=== PATIENT | male | born 1935 | race Caucasian/White ===

== ENCOUNTER 2020-05-11 06:47 | Observation (INO) | payer MEDICARE, BC, SELFPAY ==
[2019-05-02 09:25] VITALS: BMI 26.9
[2020-05-11 06:48] VITALS: BP 189/93; PULSE 85; RESP 18; TEMP 37.2; O2SAT 94; BMI 24.7
--- NOTE | 2020-05-11 07:10 | CT_ITS ---
We are attempting to reach an attending provider to discuss findings. An addendum with communication details will be sent when the communication is complete. STUDY: CT LUMBAR SPINE WITHOUT CONTRAST REASON FOR EXAM: Male, 84 years old. Fell out of chair today, complains of low back pain. Hx diabetes, prostate cancer ? mets. No prior back surgery. RADIATION DOSAGE (If Supplied By Facility): CTDIvol = ( 15.23 ) mGy, DLP = ( 472.86 ) mGycm TECHNIQUE: The patient was scanned in a multi detector CT scanner. High resolution transaxial imaging was performed. Images were obtained from T12 to S1. Sagittal and coronal images were reconstructed. Individualized dose optimization techniques were used for this CT. COMPARISON: None FINDINGS: Normal lumbar lordosis. Mild levoscoliosis of the thoracic lumbar spine centered at T12/L1. Normal vertebrae of the lumbar spine. There is gas within the subcutaneous fat posterior to the lumbar spine from L3 through L5 as well as gas in the epidural space beginning from L3 to L5 likely from some sort of intervention. Clinical correlation is recommended. L1-2: Normal endplates. Normal disc height and morphology. Normal bilateral facet joints. Normal central canal and bilateral lateral recesses. Normal bilateral intervertebral neural foramina. L2-3: Mild bilateral facet hypertrophy and ligament flavum hypertrophy. Mild bilobed disc protrusion produces mild spinal stenosis and mild bilateral neural foraminal stenosis. L3-4: Mild bilateral facet hypertrophy and severe ligament flavum hypertrophy. Mild bilobed disc protrusion produces mild spinal stenosis and mild bilateral neural foraminal stenosis. L4-5: Mild bilateral facet hypertrophy and ligament flavum hypertrophy. Mild broad disc protrusion produces mild spinal stenosis and mild bilateral neural foraminal stenosis. L5-S1: Severe left facet hypertrophy. Mild broad disc protrusion produces mild spinal stenosis and mild bilateral neural foraminal stenosis. Normal visualized paraspinous soft tissue structures. CT/Spine Lumbar without Contrast IMPRESSION: 1. Gas within the subcutaneous fat in the epidural space from L3 through L5 likely from recent intervention such as epidural injection. Clinical correlation is recommended. 2. No acute fracture or subluxation. 3. Mild levoscoliosis with diffuse degenerative disc disease as described above. Electronically Signed: Payam Navarrete MD at 8:18 EST Tel , Service support ,
[2020-05-11 07:47] LABS: Absolute Lymphocyte Count 0.96 X10^3/uL (0.83-4.51); Absolute Neutrophil Count 6.2 X10^3/uL (2.0-7.7); Basophil# 0.02 X10^3/uL; Basophil% 0.2 % (0-1); Eosinophil# 0.03 X10^3/uL; Eosinophils% 0.4 % (0-5); Hemoglobin 14.2 g/dL (13.0-16.5); Lymphocyte # 0.96 X10^3/ul (4.0); Lymphocyte % 11.9 % (19-41); Mean Corp Hgb Conc 32.3 g/dL (32-36); Mean Corpuscular Hgb 28.9 pg (27.0-32.0); Mean Corpuscular Volume 89.4 fL (80-94); Mean Platelet Vol. 8.6 fl (6.2-12.0); Monocyte# 0.79 X10^3/uL; Monocyte% 9.8 % (0-10); NRBC Flagged by Analyzer 0 % (0-5); Neutrophil # 6.22 X10^3/uL (2.7-7.7); Neutrophil % 77.5 % (47-70); Platelet Count 204 K/mm3 (150-450); RBC Distribution Width CV 12.7 % (11.6-14.6); RBC Distribution Width SD 42.1 fl (35.1-43.9); Red Blood Count 4.92 M/mm3 (4.6-6.2)
--- NOTE | 2020-05-11 08:17 | ED.VISSUMM ---
- ER Visit Summary Date of Service: 05/11/20 Chief Complaint: Fall History of Present Illness: The patient is a 84 M patient presents after a fall. He states he was sleeping in his computer chair when he fell out of it. He has been having issues with back pain for quite some time and sees Dr. Dillard for this. 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 Family member notes that he had an MRI which shows this metastases throughout the pelvis. He was instructed by pain management to increase his [place] from 1 pills to 2 pills because of intractable back pain. Dr. Dillard this week recommended that he may need to be admitted to the TCU for further pain control and rehabilitation to regain his strength. He denies hitting his head today. There is no LOC. His only complaint is of the back pain. Physical Examination: Vital signs reviewed. HEENT exam unremarkable. Heart is regular rate and rhythm without murmurs. Lungs are clear to auscultation. Abdomen is soft and nontender. His back is tender throughout the lumbar area diffusely. Extremities reveal no edema. Skin exam normal. Neurologic exam normal. His GCS is 15. Test Results: CBC is normal. Sodium 135, BUN 20. He is chronically elevated liver enzymes at [address] scan of the lumbar spine shows chronic changes and some subcutaneous gas from a recent epidural injection which patient did receive on . No fractures are seen. Emergency Department Course and Treatment: Patient was resting comfortably in the bed. Family was concerned about him living at home. Patient is willing to be admitted to hospital for further evaluation and physical therapy. Discussed with hospitalist he [facility] Treatment Plan: [] Disposition: Admission Impression: Fall, lumbar contusion, generalized weakness, prostate cancer This note was generated with [employer]'s dictation software. It may contain incorrect words, spelling, and punctuation that were not noted in review of the chart prior to signing ED Disposition - Plan for ED Patient: Referrals: Maday Vazquez MD [Primary Care Provider] -
[2020-05-11 08:26] LABS: Mucous, Urine 0 SEEN /hpf (<or=2+); Red Blood Cells-Urine 0 SEEN /hpf (0-5); Squamous Epithelial Cells - UA 0 SEEN /hpf (0-5); White Blood Cells 0 SEEN /hpf (0-5)
[2020-05-11 08:39] LABS: ALB/GLOB Ratio 0.8 RATIO (0.9-2.4); AST(SGOT) 92 U/L (15-37); Alanine Aminotransfer ALT/SGPT 69 U/L (16-61); Albumin, Serum 3.5 g/dL (3.2-5.0); Alkaline Phosphatase 267 U/L (45-117); Anion Gap 7 (5-15); BUN 28 mg/dL (7-18); BUN/Creat Ratio 36.5 RATIO (10-20); Calcium,Total 9.2 mg/dL (8.5-10.1); Chloride 101 mmol/L (98-107); Creatinine, Serum 0.77 mg/dL (0.70-1.30); EST Glomerular Filtration Rate 102 mL/min (>60); Est Glom Filt Rate - Afr Amer 124 mL/min (>60); Estimated Creatinine Clearance 55.76 ml/min; Globulin 4.4 g/dL (2.2-4.2); Glucose 126 mg/dL (74-106); Potassium 3.9 mmol/L (3.5-5.1); Protein, Total 7.9 g/dL (6.4-8.2); Sodium Level 135 mmol/L (136-145)
[2020-05-11 09:15] LABS: Color, Urine Straw (Yellow); Glucose, Dipstick Normal (Normal); Ketone-Dipstick Negative (Negative); Leukocyte Esterase-Dipstick Negative /ul (Negative); Nitrite-Dipstick Negative (Negative); Occult Blood-Urine 10 /ul (Negative); Protein-Dipstick 30 mg/dl (Negative); Urine Bilirubin Dipstick Negative (Negative); Urine Clarity Clear (Clear); Urine Urobilinogen Normal (Normal)
[2020-05-11 09:24] LABS: Bacteria RARE /hpf (None Seen)
[2020-05-11 09:38] VITALS: BP 179/84; PULSE 89; PULSE 94; RESP 16; TEMP 36.8; O2SAT 94
[2020-05-11 09:54] VITALS: BMI 23.3; BMI 23.4
[2020-05-11 10:00] VITALS: BP 160/98; PULSE 98; RESP 18; TEMP 36.8; O2SAT 94
[2020-05-11] MEDS: HYDROcodone Bitartrate/Apap 5/325 Tablet PO ×2 (11:59→21:34)
[2020-05-11] MEDS: Enoxaparin 40 MG/0.4 ML Syringe SC (12:01)
[2020-05-11 15:46] VITALS: BP 158/79; PULSE 89; RESP 18; TEMP 37.1; O2SAT 94
--- NOTE | 2020-05-11 15:56 | PCM.HP.STD ---
History of Present Illness Date of Admission: 05/11/20 Chief Complaint: Weakness and inability to complete adls The patient is a 84 year old M with a PMH as below who presents to the hospital after a fall. Apparently he is unable to sleep in his own bed secondary to back pain and was sitting in a computer chair, fell asleep and slid off and was found down. With his worsening back pain from prostate cancer metastasis has had difficulty with mobility. He was recently diagnosed with prostate cancer few months ago and he just started treatment. Symptoms with pelvic pain started a few months prior to his diagnosis. CT scan of his lumbar spine was done in the ER today and there is gas within the subcutaneous fat consistent with an epidural injection. Lab work demonstrated elevated alk phos with elevated LFTs. The alk phos is consistent with bony destruction secondary to prostate cancer metastasis. Vital signs are unremarkable. Past Medical History Past Medical History (Chronic Problems): Chronic Problems (Last Updated 01/02/20 @ 20:14 by Nereida Dempsey) Atherosclerosis of coronary artery without angina pectoris (Chronic) Xssxc-Qpdmnffui-Rbvdg syndrome (Chronic) Essential (primary) hypertension (Chronic) Hyperlipidemia (Chronic) Idiopathic pulmonary fibrosis (Chronic) Medical History: Medical History (Last Updated 01/02/20 @ 20:14 by Nereida Dempsey) Atherosclerosis of coronary artery without angina pectoris (Chronic) I25.10 History of non-ST elevation myocardial infarction (NSTEMI) (Resolved) Onset Date: 02/2009 I25.2 Mrpld-Dhaoasqpt-Kxwuy syndrome (Chronic) I45.6 Essential (primary) hypertension (Chronic) I10 Hyperlipidemia (Chronic) E78.5 Idiopathic pulmonary fibrosis (Chronic) J84.112 BPH (benign prostatic hyperplasia) N40.0 Basal cell carcinoma C44.91 Diverticulosis K57.90 Macular degeneration H35.30 Right lower lobe pulmonary nodule R91.1 Tubulovillous adenoma of colon D12.6 Type 2 diabetes mellitus E11.9 Non-ST elevation (NSTEMI) myocardial infarction Onset Date: 2008 I21.4 2005, 2008 Allergies quinidine Allergy (Severe, Verified 05/11/20 06:56) drug induced lupus-like symptoms animal dander Allergy (Intermediate, Verified 05/11/20 06:56) Unknown house dust Allergy (Intermediate, Verified 05/11/20 06:56) Unknown mold Allergy (Intermediate, Verified 05/11/20 06:56) Unknown Home Medications: Ambulatory Orders Medication Instructions Recorded Metoprolol Tartrate [Lopressor 25 mg PO BID 04/13/13 (beta yuly)] Montelukast [Singulair] 10 mg PO DAILY 04/13/13 Multivit-Min/FA/Lycopene/Lut 1 ea PO DAILY 04/13/13 [Centrum Silver Tablet] Nitroglycerin (INPATIENT USE) 0.4 mg SUBLINGUAL Q5M PRN 04/13/13 [Nitrostat] artificial 1 drp OPHTHALMIC 4-8XD PRN 11/16/18 tears(eyvzzvk-ixsthaib-rguezop) 0.1 %-0.3 %-0.2 % eye drops fexofenadine 180 mg tablet 180 mg PO DAILY 11/16/18 metformin 500 mg tablet,extended 1,000 mg PO BID tab 11/16/18 release 24 hr pravastatin 10 mg tablet 10 mg PO DAILY 11/16/18 tamsulosin 0.4 mg capsule 0.8 mg PO DAILY cap 11/16/18 valsartan 160 mg tablet 160 mg PO DAILY 11/16/18 Bicalutamide [Casodex] 50 mg PO DAILY 05/11/20 Hydrocodone/Acetaminophen [[place] 2 ea PO TID PRN PRN 05/11/20 5-325 Tablet] Surgical History: Surgical History (Last Reviewed 05/02/19 @ 09:25 by Nereida Dempsey) History of coronary artery stent placement (Resolved) Onset Date: 09/15/05 Z95.5 LPW-OUA-Mhyr LAD w/ 3.5 x 13 Cypher and OM1 w/ 2.5 x 18 mm Cypher 2005 H/O basal cell carcinoma excision Z98.890, Z85.828 History of left heart catheterization Onset Date: 03/16/09 Z98.890 High lateral branch with previous placed stent is occluded History of radiofrequency ablation procedure for cardiac arrhythmia Onset Date: 1997 [id number] History of tonsillectomy Z90.89 Hx of cholecystectomy Z90.49 Surgical History: tonsillectomy, - Smoking Status: Never smoker Alcohol: None Drugs: None - *Family History Maternal History Items: Heart Disease, Stroke Paternal History Items: Heart Disease Review of Systems Constitutional: Reports: Weakness. Denies: Chills, Fever, Weight Change HEENT: Denies: Head Aches, Sinus Congestion, Sinus Drainage Cardiovascular: Denies: Chest Pain, Palpitations Respiratory: Denies: Cough, Shortness of breath at rest, Sputum production Gastrointestinal: Denies: Abdominal Pain, Nausea, Vomiting Genitourinary: Denies: Dysuria Musculoskeletal: Reports: Back Pain. Denies: Joint Pain, Joint Tenderness Skin: Denies: Rash, Wounds Neurological: Denies: Numbness, Tingling, Focal weakness Psychiatric: Denies: Anxiety, Depression Hematologic/ Lymphatic: Denies: Easy Bruising, Easy Bleeding VTE Information - Inpt Only VTE Present on Admission: No - Physical Exam Vitals/I&O's: Vital Signs Temp Pulse Resp BP Pulse Ox 98.8 F 89 18 158/79 H 94 05/11/20 15:46 05/11/20 15:46 05/11/20 15:46 05/11/20 15:46 05/11/20 15:46 Oxygen Delivery Method Room Air Weight: 163 lb 2.273 oz Body Mass Index (BMI) 23.3 Finger Stick Blood Glucose 235 Intake and Output for Last 24 Hours 05/09/20 05/10/20 05/11/20 23:59 23:59 23:59 Intake Total 50 / 50 Output Total 200 / 200 Balance -150 / -150 General: Alert, Oriented x3, Cooperative, No apparent distress HEENT: Atraumatic, PERRLA, EOMI, Normocephalic Oral: Moist Mucosa Neck: Supple, No JVD Lungs: Clear to auscultation, Normal air movement, No rhonchi, No wheeze, No rales Cardiovascular: Regular rate, Regular Rhythm, Normal S1, Normal S2, No murmurs Abdomen: Soft, Non Tender, Non-Distended, No Hepato-splenomegaly Extremities: No edema, Capillary Refill Less than 3 Seconds Skin: No rashes, No breakdown Neurological: Neuro grossly intact, Sensory exam intact to light touch and pain Psych/Mental Status: Normal Affect, Appropriate Laboratory Results 05/11/20 07:25: WBC 8.0, RBC 4.92, Hgb 14.2, Hct 44.0, MCV 89.4, MCH 28.9, MCHC 32.3, RDW Std Deviation 42.1, RDW Coeff of [place] 12.7, Plt Count 204, MPV 8.6, Immature Gran % (Auto) 0.200, Neut % (Auto) 77.5 H, Lymph % (Auto) 11.9 L, [place] % (Auto) 9.8, Eos % (Auto) 0.4, Baso % (Auto) 0.2, Absolute Neuts (auto) 6.2, Absolute Lymphs (auto) 0.96, Nucleated RBC % 0 05/11/20 07:25: Sodium 135 L, Potassium 3.9, Chloride 101, Carbon Dioxide 27.0, Anion Gap 7, BUN 28 H, Creatinine 0.77, Estim Creat Clear Calc 55.76, Est GFR (MDRD) Af Amer 124, Est GFR (MDRD) Non-Af 102, BUN/Creatinine Ratio 36.5 H, Glucose 126 H, Calcium 9.2, Total Bilirubin 0.70, AST 92 H, ALT 69 H, Alkaline Phosphatase 267 H, Total Protein 7.9, Albumin 3.5, Globulin 4.4 H, Albumin/Globulin Ratio 0.8 L 05/11/20 08:19: Urine Color Straw, Urine Clarity Clear, Urine pH 6.0, Ur Specific [place] 1.010, Urine Protein 30 H, Urine Glucose (UA) Normal, Urine Ketones Negative, Urine Occult Blood 10 H, Urine Nitrite Negative, Urine Bilirubin Negative, Urine Urobilinogen Normal, Ur Leukocyte Esterase Negative, Urine RBC 0 SEEN, Urine WBC 0 SEEN, Ur Squamous Epith Cells 0 SEEN, Urine Bacteria RARE, Urine Mucus 0 SEEN Current Medications Hydrocodone Bitart/Acetaminophen (Hydrocodone Bitartrate/[place] 5/325 Tablet) 2 tablet PO TID PRN PRN PRN Reason: Pain Score 1-10 Last Admin: 05/11/20 11:59 Dose: 2 tablet Documented by: Bicalutamide (Bicalutamide 50 Mg Tablet) 50 mg PO DAILY [facility] Enoxaparin Sodium (Enoxaparin 40 Mg/0.4 Ml Syringe) 40 mg SC DAILY [facility] Last Admin: 05/11/20 12:01 Dose: 40 mg Documented by: Losartan Potassium (Losartan Potassium 50 Mg Tablet) 50 mg PO DAILY [facility] Melatonin (Melatonin 3 Mg Tablet) 3 mg PO QHS PRN PRN PRN Reason: INSOMNIA Metoprolol Tartrate (Metoprolol Tartrate 25 Mg Tablet) 25 mg PO BID [facility] Montelukast Sodium (Montelukast 10 Mg Tablet) 10 mg PO DAILY [facility] Ondansetron HCl (Ondansetron 4 Mg/2 Ml Vial) 4 mg IV Q8H PRN PRN PRN Reason: NAUSEA/VOMITING Pravastatin Sodium (Pravastatin 20 Mg Tablet) 10 mg PO QHS [facility] Tamsulosin HCl (Tamsulosin Hcl 0.4 Mg Capsule) 0.8 mg PO DAILY [facility] Assessment/Plan All Active Problems (Last Updated 01/02/20 @ 20:14 by Nereida Dempsey) History of coronary artery stent placement (Resolved 09/15/05) History of non-ST elevation myocardial infarction (NSTEMI) (Resolved 02/2009) 1. Generalized debility and inability to complete ADLs/back pain secondary to prostate cancer metastasis -He did receive a spine injection per Dr. Dillard last week -Continue with his home pain meds -PT/OT for evaluation -Continue with Casodex as well as Flomax -We will consult case management for discharge planning for possible SNF placement for rehab and pain management 2. CAD status post stent/HTN/HLD -Blood pressure stable -We will continue with home metoprolol, valsartan, pravastatin 3. DM 2 -We will hold his home metformin and place him on a sliding scale insulin -Accu-Cheks AC at bedtime I had a 20-minute advanced care planning discussion with him on both CODE STATUS which is a DNR CCA no intubation as well as on the concept of palliative care versus hospice care. DVT: Lovenox OBSV E&M: 08435 Initial observation care L2 Procedures: 34637 Advncd Care Plan 30 Min
[2020-05-11 17:20] LABS: Bedside Glucose 138 mg/dL (70-110)
[2020-05-11] MEDS: Pravastatin 20 MG Tablet 10 MG PO (21:36)
[2020-05-11] MEDS: MELATONIN 3 MG TABLET PO (21:36)
[2020-05-11 21:40] VITALS: BP 157/64; PULSE 84
[2020-05-11] MEDS: Metoprolol Tartrate 25 MG Tablet PO (21:40)
[2020-05-11 21:44] VITALS: BP 157/64; PULSE 90; RESP 18; TEMP 36.9; O2SAT 97
[2020-05-11 22:16] LABS: Bedside Glucose 169 mg/dL (70-110)
[2020-05-12 02:48] VITALS: BP 157/78; PULSE 80; RESP 20; TEMP 36.6; O2SAT 94
[2020-05-12 05:30] LABS: Absolute Lymphocyte Count 1.47 X10^3/uL (0.83-4.51); Absolute Neutrophil Count 5.4 X10^3/uL (2.0-7.7); Basophil# 0.04 X10^3/uL; Basophil% 0.5 % (0-1); Eosinophil# 0.12 X10^3/uL; Eosinophils% 1.5 % (0-5); Hematocrit 42.4 % (40-54); Hemoglobin 13.9 g/dL (13.0-16.5); Lymphocyte # 1.47 X10^3/ul (4.0); Lymphocyte % 18.8 % (19-41); Mean Corp Hgb Conc 32.8 g/dL (32-36); Mean Corpuscular Volume 88.3 fL (80-94); Mean Platelet Vol. 8.7 fl (6.2-12.0); Monocyte# 0.83 X10^3/uL; Monocyte% 10.6 % (0-10); NRBC Flagged by Analyzer 0 % (0-5); Neutrophil # 5.36 X10^3/uL (2.7-7.7); Neutrophil % 68.3 % (47-70); Platelet Count 199 K/mm3 (150-450); RBC Distribution Width CV 12.6 % (11.6-14.6); RBC Distribution Width SD 41.1 fl (35.1-43.9); White Blood Count 7.8 K/mm3 (4.4-11.0)
[2020-05-12 05:50] LABS: Anion Gap 4 (5-15); BUN 20 mg/dL (7-18); BUN/Creat Ratio 29.3 RATIO (10-20); Calcium,Total 9.1 mg/dL (8.5-10.1); Chloride 101 mmol/L (98-107); Creatinine, Serum 0.68 mg/dL (0.70-1.30); EST Glomerular Filtration Rate 117 mL/min (>60); Est Glom Filt Rate - Afr Amer 142 mL/min (>60); Estimated Creatinine Clearance 55.76 ml/min; Glucose 136 mg/dL (74-106); Sodium Level 135 mmol/L (136-145)
[2020-05-12] MEDS: Insulin Lispro 100 UNIT/ML INSULN.PEN SC ×2 (06:48→11:35)
[2020-05-12 06:51] LABS: Bedside Glucose 154 mg/dL (70-110)
[2020-05-12 07:50] VITALS: BP 177/85; PULSE 80; RESP 18; TEMP 37.3; O2SAT 93
[2020-05-12 07:59] VITALS: PULSE 80
[2020-05-12] MEDS: Metoprolol Tartrate 25 MG Tablet PO (07:59)
[2020-05-12] MEDS: Losartan Potassium 50 MG Tablet PO (07:59)
[2020-05-12] MEDS: Enoxaparin 40 MG/0.4 ML Syringe SC (07:59)
[2020-05-12] MEDS: BICALUTAMIDE 50 MG TABLET PO (08:00)
--- NOTE | 2020-05-12 10:16 | CASEMGMT ---
Social Work Assessment Referral Date: 05/12/2020 Date of Assessment: 05/12/2020 Reason for consult: Debility Informant: SW Personal Status: SW met with pt to complete initial assessment. SW introduced self and role at [facility]. Pt is alert and orientated x3. Living Arrangements: Pt states that he lives alone in a two story home with first floor set up. Pt states he has a basement that he no longer goes into. Pt states that he has two steps to enter the home from the front door, one step from the back, and a ramp to enter from the garage. Pt states that he has been recently using the ramp. Pt states that he has made a commitment to no longer use the front door with the steps. Pt states that he has two children. Daughter Stefanie that lives in [place], [place] and a son Lamberto that lives in [place]. DME: Cane, walker ADLs: Pt states able to cook for self, bath self. Pt states that he has a cleaning lady that comes in every other week. Pt states that has made an agreement with his son that when pt goes to take a shower he will call his son, leave a message if son doesn't answer, and then will call son once pt is out of shower so son is aware pt is safe. Transportation: Daughter or Son in Law PCP: Dr. Vazquez Specialists: Dr. Dillard, Dr. Escobar (urologist at [facility]) and A[place]ANDRIA Merritt. Pharmacy: [facility] Cancer Dx: Pt states that he found out about two months ago. SW offered support to pt. Pt states that he doesn't have an oncologist yet. Pt denied currently receiving treatment. Pt states that his children and their significant others are very supportive, pt feels supportive. Pt states he is aware that he will have to limit his activities and be safer at home. Pt states again that he doesn't go to the basement and he will call his son when pt is getting in and out of shower. Pt states that he will not use the front door to enter and will use ramp from garage to enter. SW offered support to pt. SW encouraged pt to get an oncologist arranged and PCP should be able to assist pt. Advanced Directives: Pt states he has completed HCPOA and LW Mental Health Hx: Pt Denied Substance Abuse Hx: Pt denied HHC: Pt denied SNF: Pt denied SW reviewed PT/OT. Pt walked 440ft stand by assist. SW spoke with pt regarding discharging plans. Pt states that he wishes to return home with HHC. SW spoke with pt regarding HHC. Pt agreeable to HHC. ESE updated RN CM on referral for HHC. Pt denied additional needs or concerns at this time. Molly Louis RESEARCH AND INSIGHTS EXECUTIVE, POULTRY HATCHERY SUPERVISOR
--- NOTE | 2020-05-12 11:04 | DCINST_ITS ---
You will use the following diet at home:: Cardiac Your food should be the consistency of: Regular Discharge Activity: May Not Drive Weight Bearing Status: Weight bearing as tolerated Call your doctor if you observe: Fever of 101 or Higher, Coldness, Increased Pa in, Inability to urinate, Inability to have a bowel movement, Shortness of breath, Dizziness, Fainting spells, Swelling in the ankles, Chest pain, Prolonged hiccoughing, Increased palpitations (irregular heartbeat), Calf discomfort, Uncontrolled pain Allergies/Adverse Reactions: Allergies quinidine Allergy (Severe, Verified 05/11/20 06:56) drug induced lupus-like symptoms animal dander Allergy (Intermediate, Verified 05/11/20 06:56) Unknown house dust Allergy (Intermediate, Verified 05/11/20 06:56) Unknown mold Allergy (Intermediate, Verified 05/11/20 06:56) Unknown Medications to take at Discharge Metoprolol Tartrate [Lopressor (beta yuly)] 25 mg PO BID 04/13/13 Montelukast [Singulair] 10 mg PO DAILY 04/13/13 Multivit-Min/FA/Lycopene/Lut [Centrum Silver Tablet] 1 ea PO DAILY 04/13/13 Nitroglycerin (INPATIENT USE) [Nitrostat] 0.4 mg SUBLINGUAL Q5M PRN 04/13/13 artificial tears(fwxkqfu-kppxtkps-lcabbfn) 0.1 %-0.3 %-0.2 % eye drops 1 drp OPHTHALMIC 4-8XD PRN 11/16/18 fexofenadine 180 mg tablet 180 mg PO DAILY 11/16/18 metformin 500 mg tablet,extended release 24 hr 1,000 mg PO BID tab 11/16/18 pravastatin 10 mg tablet 10 mg PO DAILY 11/16/18 tamsulosin 0.4 mg capsule 0.8 mg PO DAILY cap 11/16/18 valsartan 160 mg tablet 160 mg PO DAILY 11/16/18 Bicalutamide [Casodex] 50 mg PO DAILY 05/11/20 Hydrocodone/Acetaminophen [[place] 5-325 Tablet] 2 ea PO TID PRN PRN 05/11/20 Primary Care Physician: Maday Vazquez MD [Primary Care Provider] - Please follow up with your Primary Care Physician in: in 2 weeks Test Results: Test results from this visit will be discussed in further detail at your follow- up appointment, if applicable. Please Follow Up With: Allison Dillard MD When: in 2-3 weeks for LS bone pain, mets for prostate cancer
--- NOTE | 2020-05-12 11:06 | DS.PCM_ITS ---
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 Duarte in [facility] came to ED with fall. This happened secondary to back pain and is unable to sleep on the bed secondary to back pain. Patient pain is being managed by Dr. Walker and he had epidural pain injection. CT lumbar spine was done which shows mild levoscoliosis with diffuse degenerative disease and gas within the subcutaneous fat in the epidural space from L3 to through L5. Patient was [facility] floor. Patient pain was controlled with Olivet. Patient is on bicalutamide and Flomax for prostate cancer. Seen by PT and OT. Patient walked 440 feet on walker with no assistance but PT on the side. Patient is being discharged with home health care. Patient was recently given 21 tablets of Olivet on 05/08/2020 but he has 1 tablet left therefore prescription for 10 tablets of Olivet given and follow-up with Dr. Dillard. Clinically there is high suspicion of possibility of prostatic cancer mets to lumbosacral spine but CT LS-spine did not reported. Patient denies constipation but prescription for senna S given as needed for constipation Discharge medication reconciliation done. Discharge follow-up instructions completed. Discharge process discussed with the patient and all questions were answered to patient's satisfaction. Total time spent, exact 35 minutes on discharge meds reconciliation, examination, coordination of care with nurses and ancillary staff, review of imaging and blood test and discussion with the patient on follow-up instructions Clinical Impression(s) from Imaging Studies Lumbar Spine CT 05/11/20 07:10 IMPRESSION: 1. Gas within the subcutaneous fat in the epidural space from L3 through L5 likely from recent intervention such as epidural injection. Clinical correlation is recommended. 2. No acute fracture or subluxation. 3. Mild levoscoliosis with diffuse degenerative disc disease as described above. Objective: Seen and examined. Hemodynamically stable. Complain of mild pain 07/30/2009 lumbar spine Physical exam General: Alert, Oriented x3, Cooperative HEENT: Atraumatic, PERRLA, EOMI, Normocephalic Oral: No Gingival or Mucosal Lesions/ Ulcerations Neck: Supple, No JVD, Negative Carotid Bruits Lungs: Air entry diminished in bilateral lung bases. No crepitation/rhonchi Cardiovascular: Regular rate, Regular Rhythm, Normal S1, Normal S2, No murmurs Abdomen: Bowel Sounds Present, Soft, Non Tender, Non-Distended : No renal angle tenderness. No suprapubic tenderness. Extremities: No edema, Capillary Refill Less than 3 Seconds Skin: No rashes, No breakdown Musculoskeletal: Mild tenderness over L3-L5 spine. No Tenderness to Palpation of Joints or Extremities Neurological: Cranial nerves II-XII grossly intact, Deep Tendon Reflexes 2+/4 and Symmetrical, Neuro grossly intact Psych/Mental Status: Normal Affect, Appropriate. - Physical Exam Vitals/I&O's: Vital Signs Temp Pulse Resp BP Pulse Ox 99.2 F H 80 18 177/85 H 93 05/12/20 07:50 05/12/20 07:59 05/12/20 07:50 05/12/20 07:50 05/12/20 07:50 Oxygen Delivery Method Room Air Weight: 163 lb 2.273 oz Body Mass Index (BMI) 23.3 Finger Stick Blood Glucose 235 Intake and Output for Last 24 Hours 05/10/20 05/11/20 05/12/20 23:59 23:59 23:59 Intake Total 450 / 450 300 / 300 Output Total 900 / 900 450 / 450 Balance -450 / -450 -150 / -150 Laboratory Results 05/11/20 17:06: POC Glucose 138 H 05/11/20 21:32: POC Glucose 169 H 05/12/20 04:52: WBC 7.8, RBC 4.80, Hgb 13.9, Hct 42.4, MCV 88.3, MCH 29.0, MCHC 32.8, RDW Std Deviation 41.1, RDW Coeff of Alannah 12.6, Plt Count 199, MPV 8.7, Immature Gran % (Auto) 0.300, Neut % (Auto) 68.3, Lymph % (Auto) 18.8 L, [place] % (Auto) 10.6 H, Eos % (Auto) 1.5, Baso % (Auto) 0.5, Absolute Neuts (auto) 5.4, Absolute Lymphs (auto) 1.47, Nucleated RBC % 0 05/12/20 04:52: Sodium 135 L, Potassium 4.0, Chloride 101, Carbon Dioxide 30.0, Anion Gap 4 L, BUN 20 H, Creatinine 0.68 L, Estim Creat Clear Calc 55.76, Est GFR (MDRD) Af Amer 142, Est GFR (MDRD) Non-Af 117, BUN/Creatinine Ratio 29.3 H, Glucose 136 H, Calcium 9.1 05/12/20 06:43: POC Glucose 154 H Current Medications Hydrocodone Bitart/Acetaminophen (Hydrocodone Bitartrate/Apap 5/325 Tablet) 2 tablet PO TID PRN PRN PRN Reason: Pain Score 1-10 Last Admin: 05/11/20 21:34 Dose: 2 tablet Documented by: Bicalutamide (Bicalutamide 50 Mg Tablet) 50 mg PO DAILY [facility] Last Admin: 05/12/20 08:00 Dose: 50 mg Documented by: Dextrose (Dextrose 50%-Water 25 Gm/50 Ml Disp.Syrin) 0 gm IV X1 PRN; Protocol PRN Reason: Hypoglycemia Enoxaparin Sodium (Enoxaparin 40 Mg/0.4 Ml Syringe) 40 mg SC DAILY [facility] Last Admin: 05/12/20 07:59 Dose: 40 mg Documented by: Glucagon (Glucagon 1 Mg/Ml Syringe) 1 mg IM .X1 PRN PRN Reason: Hypoglycemia Insulin Human Lispro (Insulin Lispro 100 Unit/Ml Insuln.Pen) 0 unit SC ACHS [facility]; Protocol Last Admin: 05/12/20 06:48 Dose: 1 u Documented by: Losartan Potassium (Losartan Potassium 50 Mg Tablet) 50 mg PO DAILY [facility] Last Admin: 05/12/20 07:59 Dose: 50 mg Documented by: Melatonin (Melatonin 3 Mg Tablet) 3 mg PO QHS PRN PRN PRN Reason: INSOMNIA Last Admin: 05/11/20 21:36 Dose: 3 mg Documented by: Metoprolol Tartrate (Metoprolol Tartrate 25 Mg Tablet) 25 mg PO BID [facility] Last Admin: 05/12/20 07:59 Dose: 25 mg Documented by: Montelukast Sodium (Montelukast 10 Mg Tablet) 10 mg PO HS [facility] Ondansetron HCl (Ondansetron 4 Mg/2 Ml Vial) 4 mg IV Q8H PRN PRN PRN Reason: NAUSEA/VOMITING Pravastatin Sodium (Pravastatin 20 Mg Tablet) 10 mg PO QHS [facility] Last Admin: 05/11/20 21:36 Dose: 10 mg Documented by: Tamsulosin HCl (Tamsulosin Hcl 0.4 Mg Capsule) 0.8 mg PO QHS [facility] Discharge Activity: May Not Drive Weight Bearing Status: Weight bearing as tolerated Call your doctor if you observe: Fever of 101 or Higher, Coldness, Increased Pain, Inability to urinate, Inability to have a bowel movement, Shortness of breath, Dizziness, Fainting spells, Swelling in the ankles, Chest pain, Prolo nged hiccoughing, Increased palpitations (irregular heartbeat), Calf discomfort, Uncontrolled pain Home Medications: Medications to take at Discharge Metoprolol Tartrate [Lopressor (beta yuly)] 25 mg PO BID 04/13/13 Montelukast [Singulair] 10 mg PO DAILY 04/13/13 Multivit-Min/FA/Lycopene/Lut [Centrum Silver Tablet] 1 ea PO DAILY 04/13/13 Nitroglycerin (INPATIENT USE) [Nitrostat] 0.4 mg SUBLINGUAL Q5M PRN 04/13/13 artificial tears(insawxi-nrbdrajw-ullpvvb) 0.1 %-0.3 %-0.2 % eye drops 1 drp OPHTHALMIC 4-8XD PRN 11/16/18 fexofenadine 180 mg tablet 180 mg PO DAILY 11/16/18 metformin 500 mg tablet,extended release 24 hr 1,000 mg PO BID tab 11/16/18 pravastatin 10 mg tablet 10 mg PO DAILY 11/16/18 tamsulosin 0.4 mg capsule 0.8 mg PO DAILY cap 11/16/18 valsartan 160 mg tablet 160 mg PO DAILY 11/16/18 Bicalutamide [Casodex] 50 mg PO DAILY 05/11/20 Hydrocodone/Acetaminophen [Olivet 5-325 Tablet] 2 ea PO TID PRN PRN 2 Days #10 tab 05/12/20 Sennosides/Docusate Sodium [Senna-S Tablet] 2 ea PO BID PRN PRN #30 tab 05/12/20 Following Prescriptions Were Given to Patient: Hydrocodone/Acetaminophen [Olivet 5-325 Tablet] 2 ea PO TID PRN PRN 2 Days #10 tab PRN Reason: Pain Score 6-10 Transmission Status: Sent to [facility] Primary Care Physician: Maday Vazquez MD [Primary Care Provider] - Please follow up with your Primary Care Physician in: in 2 weeks Please Follow Up With: Allison Dillard MD When: in 2-3 weeks for LS bone pain, mets for prostate cancer Medical Necessity - Tobacco Use Smoking Status: Never smoker Meaningful Use Info Meaningful Use Diagnoses (Choose all that apply): None applicable Inpatient E&M: 92994 Disch Hosp OBSV E&M: 49071 Initial observation care L3
[2020-05-12 11:25] LABS: Bedside Glucose 177 mg/dL (70-110)
--- NOTE | 2020-05-12 12:19 | NURSING ---
disussed pt status with daughter and son-in-law. answered questions about home health care and plan for DC home today, they informed this RN that pt has an appointment with Dr Dillard at 1315 and were wondering about the possibility of making that appointment. this RN verified that today Dr Dillard's office is closed due to power outage and appointments for today will be rescheduled.
--- NOTE | 2020-05-12 13:30 | CASEMGMT ---
Addendum entered by Molly Sotelo 05/12/20 14:05: Received call back from [facility] and they are able to accept the patient. Original Note: ZELALEM REEVES received update from that patient would be interested in HHC. ZELALEM REEVES in to discuss HHC and provided list of HHC companies. Patient stated he would review list and talk with daughter. ZELALEM REEVES received updated from nursing that daughter Stefanie and son-in-law Feng had questions regarding HHC. ZELALEM REEVES called and spoke with Stefanie and Feng and answered questions and concerns regarding HHC. Stefanie and Feng would like [facility] for HHC. ZELALEM REEVES in to updated patient and confirm [facility] as patient's choice for HHC. Patient is agreeable to [facility]. ZELALEM REEVES made referral to [facility], awaiting call back with acceptance. CM will continue to follow this patient and plan for a safe discharge.
--- NOTE | 2020-05-12 14:10 | CASEMGMT ---
Social Work Note SW completed Palliative Care Screening tool, pt scored 3 (observe, reconsider consult if condition deteriorates). SW did provide pt with Palliative Care brochure. Pt states he will take brochure home and will review with his daughter. Molly Louis FARM DEMONSTRATOR, SLIP DUMPER
[2020-05-12 14:45] VITALS: BP 139/65; PULSE 84; RESP 16; TEMP 36.9; O2SAT 96
== END 2020-05-12 15:00 | disposition home health service (06) ==
LOC: ED 08:19 → MS3 09:27
PROVIDERS: Admitting Provider Family Medicine; Emergency Provider Emergency Medicine; PCP Internal Medicine; Visit Provider Internal Medicine
DX: G89.3 Neoplasm related pain (acute) (chronic) (principal); C79.51 Secondary malignant neoplasm of bone; C61 Malignant neoplasm of prostate; E78.5 Hyperlipidemia, unspecified; I25.10 Atherosclerotic heart disease of native coronary artery without angina pectoris; I10 Essential (primary) hypertension; J84.112 Idiopathic pulmonary fibrosis; I25.2 Old myocardial infarction; N40.0 Benign prostatic hyperplasia without lower urinary tract symptoms; E11.9 Type 2 diabetes mellitus without complications; Z79.899 Other long term (current) drug therapy; Z79.84 Long term (current) use of oral hypoglycemic drugs; Z95.5 Presence of coronary angioplasty implant and graft
CPT/HCPCS: 36415; 72131; 80048; 80053; 81001; 82962; 85025; 96372; 97162; 97166; 99218; 99285; A4216; G0378

== ENCOUNTER 2020-06-01 10:04 | Observation (INO) | payer MEDICARE, BC, SELFPAY ==
[2020-05-11 09:54] VITALS: BMI 23.3
[2020-06-01] VITALS (16 sets, daily range): BP systolic 127–164; BP diastolic 68–85; PULSE 92–120; RESP 18–21; TEMP 36.6–37; O2SAT 96–100; BMI 21.9; BMI 21.1
--- NOTE | 2020-06-01 10:09 | EKG12_ITS ---
Test Reason : PALPITATIONS Blood Pressure : / mmHG Vent. Rate : 109 BPM Atrial Rate : 109 BPM P-R Int : 144 ms QRS Dur : 084 ms QT Int : 324 ms P-R-T Axes : 040 049 068 degrees QTc Int : 436 ms Sinus tachycardia with Premature atrial complexes Possible Left atrial enlargement Septal infarct , age undetermined Lateral infarct , age undetermined , cannot be excluded Abnormal ECG Confirmed by NALDO SWANSON, DAE ([id number]), technical writer and editor ROSA WALSH ([id number]) on 06/03/2020 8:45:29 AM Referred By: TERRELL Confirmed By:DAE HITCHCOCK MD
--- NOTE | 2020-06-01 10:09 | RAD_ITS ---
STUDY: X-RAY CHEST REASON FOR EXAM: Male, 85 years old. Shortness of breath and palpitations. TECHNIQUE: Single AP portable view of the chest. COMPARISON: Prior comparison studies are not available for review at this time. FINDINGS: Somewhat hyperinflated lungs. Prominent interstitial markings predominantly in the lung bases. Mild prominence of the pulmonary vasculature. No focal infiltrate is seen. There is no demonstrated pleural abnormality. Normal size heart. Normal mediastinum and keny. Normal visualized pulmonary arteries. There is atherosclerotic calcification of the aortic arch with tortuosity. There are degenerative changes of the visualized thoracic spine. There is a small calcification lateral to the right humeral head consistent with calcific tendinitis. There is no demonstrated abnormality of the visualized soft tissue structures of the upper abdomen. RAD/Chest 1 View (Portable) IMPRESSION: Prominent interstitial markings could be chronic. Mild interstitial pulmonary edema cannot be excluded. Electronically Signed: Genaro Reyes MD at 10:44 EST Tel , Service support ,
[2020-06-01 10:24] LABS: Absolute Lymphocyte Count 1.66 X10^3/uL (0.83-4.51); Absolute Neutrophil Count 4.4 X10^3/uL (2.0-7.7); Basophil# 0.02 X10^3/uL; Basophil% 0.3 % (0-1); Eosinophil# 0.06 X10^3/uL; Eosinophils% 0.9 % (0-5); Hematocrit 41.2 % (40-54); Hemoglobin 13.9 g/dL (13.0-16.5); Lymphocyte # 1.66 X10^3/ul (4.0); Lymphocyte % 25.2 % (19-41); Mean Corp Hgb Conc 33.7 g/dL (32-36); Mean Corpuscular Hgb 29.1 pg (27.0-32.0); Mean Corpuscular Volume 86.4 fL (80-94); Mean Platelet Vol. 8.2 fl (6.2-12.0); Monocyte# 0.41 X10^3/uL; Monocyte% 6.2 % (0-10); NRBC Flagged by Analyzer 0 % (0-5); Neutrophil # 4.41 X10^3/uL (2.7-7.7); Neutrophil % 67.1 % (47-70); Platelet Count 149 K/mm3 (150-450); RBC Distribution Width CV 12.4 % (11.6-14.6); RBC Distribution Width SD 39.1 fl (35.1-43.9); Red Blood Count 4.77 M/mm3 (4.6-6.2); White Blood Count 6.6 K/mm3 (4.4-11.0)
[2020-06-01 10:46] LABS: Anion Gap 11 (5-15); BUN 14 mg/dL (7-18); BUN/Creat Ratio 16.5 RATIO (10-20); Calcium,Total 9.5 mg/dL (8.5-10.1); Chloride 98 mmol/L (98-107); Creatinine, Serum 0.85 mg/dL (0.70-1.30); EST Glomerular Filtration Rate 91 mL/min (>60); Est Glom Filt Rate - Afr Amer 111 mL/min (>60); Estimated Creatinine Clearance 61.24 ml/min; Glucose 191 mg/dL (74-106); Potassium 3.9 mmol/L (3.5-5.1); Sodium Level 135 mmol/L (136-145)
[2020-06-01 10:47] LABS: BNP,B-Type NATRIURETIC PEPTIDE 82.1 pg/mL (0-100)
[2020-06-01 11:14] LABS: D-Dimer Quantitative (DVT/PE) 0.67 FEU/ug/m (0.27-0.49)
--- NOTE | 2020-06-01 11:17 | CT_ITS ---
STUDY: CTA CHEST REASON FOR EXAM: Male, 85 years old. Shortness breath, history of COPD and previous CABG. RADIATION DOSAGE (If Supplied By Facility): CTDIvol = ( 9.36 ) mGy, DLP = ( 328.59 ) mGycm TECHNIQUE: The examination was performed with the intravenous administration of IV 100mL Isovue-370. Post-processing of the angiographic images was performed, with multiplanar reformation and 3D reconstruction. Individualized dose optimization techniques were used for this CT. COMPARISON: None. FINDINGS: Normal enhancement of the main pulmonary artery and right and left pulmonary arteries. Normal enhancement of the bilateral peripheral pulmonary arteries. There is no demonstrated pulmonary embolism. There is atherosclerotic tortuosity of the aortic arch and descending thoracic aorta. There is no demonstrated aortic dissection. Normal heart and pericardium. Coronary stents or calcifications. Normal mediastinum. Normal hilar regions. Normal visualized trachea and bronchi. The lungs are well expanded. Centrilobular emphysema with bronchiectatic changes centrally and both lower lobes. Superimposed cystic changes in both lower lobes suggestive of pulmonary fibrosis. Hazy opacities in the right((yasemin which may reflect superimposed infiltrate. Right upper lobe stranding probably due to scarring. There are no pleural effusions. Normal chest wall structures. There are degenerative changes of thoracic spine. No demonstrated acute changes in the visualized upper abdomen. CT/CTA Chest W/WO Contrast IMPRESSION: 1. No evidence of pulmonary embolism or aortic dissection. 2. Severe emphysematous changes. 3. Cystic/honeycomb pattern in the left lower lung likely due to pulmonary fibrosis with possible superimposed infiltrate. Electronically Signed: Genaro Reyes MD at 12:24 EST Tel , Service support ,
--- NOTE | 2020-06-01 12:54 | ED.VIS.GEN ---
History of Present Illness Chief Complaint: Palpitations Informant: Patient Onset: Today Maximum Severity: Mild Narrative: Patient presents complaining of sudden onset of shortness of breath and tachycardia. 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, recently diagnosed with prostate cancer therapy pending, States he woke feeling fine then as he was having breakfast he began having rapid heart beating and a sense of shortness of breath did not resolve EMS was called he was brought in on arrival he has a tachycardia sinus rhythm of about 120 he speaking full sentences not He has had no fever no cough no coronavirus exposures normal bowel bladder habits Past Medical History - Allergies and Home Meds Allergies/Adverse Reactions: Allergies quinidine Allergy (Severe, Verified 06/01/20 10:11) drug induced lupus-like symptoms animal dander Allergy (Intermediate, Verified 06/01/20 10:11) Unknown house dust Allergy (Intermediate, Verified 06/01/20 10:11) Unknown mold Allergy (Intermediate, Verified 06/01/20 10:11) Unknown Primary Care Physician: Maday Vazquez MD [Primary Care Provider] - Past Medical History: - - Includes as above Surgical History: tonsillectomy, - Smoking Status: Never smoker - Family History Maternal Family History: Reports: Heart Disease, Stroke Paternal Family History: Reports: Heart Disease Review of Systems General: Denies: Chills, Fever, Sweats Eyes: Denies: Visual changes - bilaterally, Diplopia ENT: Denies: Rhinorrhea, Sore throat Cardiovascular: Reports: Palpitations. Denies: Chest pain Respiratory: Reports: Dyspnea. Denies: Cough, Dyspnea on exertion Gastrointestinal: Denies: Abdominal pain, Nausea, Vomiting, Diarrhea, Melena, Hematochezia Genitourinary: Denies: Dysuria, Hematuria, Frequency Musculoskeletal: Denies: Back pain, Extremity Pain Skin: Denies: Rash, Wounds Neurological: Denies: Headache, Weakness, Numbness Physical Exam Vital Signs/Narrative: Vital Signs Temp Pulse Resp BP Pulse Ox 06/01/20 12:05 101 H 06/01/20 12:00 98.4 F 101 H 19 H 130/69 H 99 06/01/20 11:09 98.2 F 110 H 19 H 137/77 H 100 06/01/20 10:15 100 06/01/20 10:09 98.2 F 110 H 20 H 159/78 H 100 06/01/20 10:05 98.1 F 108 H 20 H 159/78 H 98 General: Well nourished, Well developed, No Acute Distress Head: Normocephalic, Atraumatic Eyes: Perrl, EOMI ENT: Moist mucous membranes, No rhinorrhea Neck: Supple, Nontender Cardiovascular: Regular rate, Regular rhythm, No murmurs, Tachycardia Respiratory: No distress, CTA bilaterally, Chest nontender Abdomen: Soft, Nontender, Nondistended, Normal bowel sounds Back: Nontender, Normal Inspection Extremities: Nontender, No edema Skin: Normal color, No rash Neurological: Alert, Oriented x3, Cranial nerves II-XII grossly intact, Normal Strength, Normal Sensation Psychological: Normal affect, Normal Mood Diagnostic/Tx/Re-eval - Medical Decision Making Patient is resting comfortably in the bed his EKG shows a sinus tachycardia rate 110 no acute injury, 1 view chest x-ray to my review showed nothing acute soft tissue heart lungs unremarkable, radiology report noted possible interstitial pulmonary edema fibrosis see that report, ED screening evaluation generally unremarkable except his D-dimer came back positive slightly he was sent for CTA of chest given all the above and his current presentation, CTA of the chest shows no PE there appears to be signs of COPD honeycomb changes involving the left lower lobe possible pneumonia versus fibrosis see that report Rapid Covid antigen testing result not available he was started IV antibiotics given the tachycardia the shortness of breath I have talked to the hospitalist for admission and further management Admit stable Final impression dyspnea related to congestive heart failure versus pneumonia, sinus tachycardia ED Disposition - Plan for ED Patient: Diagnosis: Dyspnea pneumonia tachycardia Referrals: Maday Vazquez MD [Primary Care Provider] -
[2020-06-01] MEDS: levoFLOXacin IV 750 MG/150 ML BAG 100 MG IV (13:29)
[2020-06-01] MEDS: Ondansetron 4 MG/2 ML Vial IV (13:46)
[2020-06-01] MEDS: morphine 8 MG/ML Syringe 6 MG IV (13:46)
--- NOTE | 2020-06-01 15:13 | HP.PCM_ITS ---
History of Present Illness Date of Admission: 06/01/20 Chief Complaint: palpitations The patient is a 85 year old M with a past medical history as outlined which includes a history of Uehvo-Nqewbllvz-Awibg syndrome which he thinks he had ablation for at [facility] some years ago, CAD s/p stent and recently diagnosed prostate cancer. He was admitted to the ED on 05/2020 with a complaint of shortness of breath and palpitations. Symptoms started in the early hours of the day of admission and persisted. This started when he was having breakfast. Symptoms did not resolve so he called the EMS. On admission, he was found to have sinus tachycardia with heart rate of about 120. He denied any fever or chills, any dizziness or chest pain, any nausea vomiting or diarrhea. Review of symptoms otherwise negative. He does not member the last time he had such symptoms of tachycardia. Admission, vitals show temperature of 98.2 Fahrenheit with pulse rate of 110, respiratory rate of 19 and blood pressure of 137/77. Chemistry essentially unremarkable with BNP of 82.1 and troponin of less than 0.015. EKG showed sinus tachycardia. He is being admitted to be managed for sinus tachycardia. [] Past Medical History Past Medical History (Chronic Problems): Chronic Problems (Last Updated 01/02/20 @ 20:14 by Nereida Dempsey) Atherosclerosis of coronary artery without angina pectoris (Chronic) Ehcnn-Dunplevxp-Copqq syndrome (Chronic) Essential (primary) hypertension (Chronic) Hyperlipidemia (Chronic) Idiopathic pulmonary fibrosis (Chronic) Medical History: Medical History (Last Updated 01/02/20 @ 20:14 by Nereida Dempsey) Atherosclerosis of coronary artery without angina pectoris (Chronic) I25.10 History of non-ST elevation myocardial infarction (NSTEMI) (Resolved) Onset Date: 02/2009 I25.2 Ylcpx-Wduyfalrk-Uqxrv syndrome (Chronic) I45.6 Essential (primary) hypertension (Chronic) I10 Hyperlipidemia (Chronic) E78.5 Idiopathic pulmonary fibrosis (Chronic) J84.112 BPH (benign prostatic hyperplasia) N40.0 Basal cell carcinoma C44.91 Diverticulosis K57.90 Macular degeneration H35.30 Right lower lobe pulmonary nodule R91.1 Tubulovillous adenoma of colon D12.6 Type 2 diabetes mellitus E11.9 Non-ST elevation (NSTEMI) myocardial infarction Onset Date: 2008 I21.4 2008 Allergies quinidine Allergy (Severe, Verified 06/01/20 10:11) drug induced lupus-like symptoms animal dander Allergy (Intermediate, Verified 06/01/20 10:11) Unknown house dust Allergy (Intermediate, Verified 06/01/20 10:11) Unknown mold Allergy (Intermediate, Verified 06/01/20 10:11) Unknown Home Medications: Ambulatory Orders Medication Instructions Recorded Metoprolol Tartrate [Lopressor 25 mg PO BID 04/13/13 (beta yuly)] Montelukast [Singulair] 10 mg PO DAILY 04/13/13 Multivit-Min/FA/Lycopene/Lut 1 ea PO DAILY 04/13/13 [Centrum Silver Tablet] Nitroglycerin (INPATIENT USE) 0.4 mg SUBLINGUAL Q5M PRN 04/13/13 [Nitrostat] artificial 1 drp OPHTHALMIC 4-8XD PRN 11/16/18 tears(ybqbdep-qbdcajca-kobtpoz) 0.1 %-0.3 %-0.2 % eye drops fexofenadine 180 mg tablet 180 mg PO DAILY 11/16/18 metformin 500 mg tablet,extended 1,000 mg PO BID tab 11/16/18 release 24 hr pravastatin 10 mg tablet 10 mg PO DAILY 11/16/18 tamsulosin 0.4 mg capsule 0.8 mg PO DAILY cap 11/16/18 valsartan 160 mg tablet 160 mg PO DAILY 11/16/18 Bicalutamide [Casodex] 50 mg PO DAILY 05/11/20 Hydrocodone/Acetaminophen [[place] 2 ea PO TID PRN PRN 2 Days #10 tab 05/12/20 5-325 Tablet] Sennosides/Docusate Sodium 2 ea PO BID PRN PRN #30 tab 05/12/20 [Senna-S Tablet] Alprazolam 1 - 2 tab PO DAILY PRN 06/01/20 Surgical History: Surgical History (Last Reviewed 05/02/19 @ 09:25 by Nereida Dempsey) History of coronary artery stent placement (Resolved) Onset Date: 09/15/05 Z95.5 ZJO-UGR-Dfbl LAD w/ 3.5 x 13 Cypher and OM1 w/ 2.5 x 18 mm Cypher 2005 H/O basal cell carcinoma excision Z98.890, Z85.828 History of left heart catheterization Onset Date: 03/16/09 Z98.890 High lateral branch with previous placed stent is occluded History of radiofrequency ablation procedure for cardiac arrhythmia Onset Date: 1997 Z History of tonsillectomy Z90.89 Hx of cholecystectomy Z90.49 Surgical History: tonsillectomy, - Psychiatric History: No pertinent psych hx Lives: Alone Smoking Status: Never smoker Alcohol: None Drugs: None - *Family History Maternal History Items: Heart Disease, Stroke Paternal History Items: Heart Disease Review of Systems Constitutional: Denies: Chills, Fever, Malaise, Weakness, Weight Change Eyes: Denies: Blurred vision HEENT: Denies: Head Aches, Sinus Congestion, Sinus Drainage Cardiovascular: Reports: Palpitations. Denies: Chest Pain, Chest Pressure, Chest Tightness, Edema, Heaviness, Light Headedness Respiratory: Denies: Cough, Shortness of Breath, Shortness of breath at rest, Shortness of breath upon exertion, Sputum production Gastrointestinal: Denies: Abdominal Pain, Nausea, Vomiting Genitourinary: Denies: Dysuria Musculoskeletal: Denies: Joint Pain, Joint Tenderness Skin: Denies: Rash, Wounds Neurological: Denies: Numbness, Tingling, Focal weakness Psychiatric: Denies: Anxiety, Depression, Homicidal Ideations, Suicidal Ideations Hematologic/ Lymphatic: Denies: Easy Bruising, Easy Bleeding VTE Information - Inpt Only VTE Present on Admission: No VTE Pharm Prophylaxis ordered?: Yes - Physical Exam Vitals/I&O's: Vital Signs Temp Pulse Resp BP Pulse Ox 98.6 F 118 H 21 H 153/84 H 98 06/01/20 15:07 06/01/20 15:07 06/01/20 15:07 06/01/20 15:07 06/01/20 15:07 Oxygen Delivery Method Room Air Weight: 153 lb 0.013 oz Body Mass Index (BMI) 21.9 Finger Stick Blood Glucose 235 Intake and Output for Last 24 Hours 05/30/20 05/31/20 06/01/20 23:59 23:59 23:59 Intake Total 150 / 150 Balance 150 / 150 General: Alert, Oriented x3, Cooperative, No apparent distress HEENT: Atraumatic, PERRLA, EOMI, Normocephalic Oral: Dry Mucosa Neck: Supple, No JVD, Negative Carotid Bruits Lungs: - - decreased breath sounds bibasally, no wheezes or crackles. On room air Cardiovascular: Normal S1, Normal S2, No murmurs, Tachycardic - sinus tachycardia with some PVCs Abdomen: Bowel Sounds Present, Soft, Non Tender, No Hepato-splenomegaly, - - mildly distended abdomen Extremities: No clubbing, No cyanosis, No edema, Capillary Refill Less than 3 Seconds Skin: No rashes, No breakdown Musculoskeletal: No Tenderness to Palpation of Joints or Extremities Lymphatic: No Cervical, Supraclavicular, or Inguinal Adenopathy Neurological: Cranial nerves II-XII grossly intact, Neuro grossly intact, Motor Exam 5/5 strength throughout Psych/Mental Status: Normal Affect, Appropriate, Alert and oriented to time, place, person, mood and affect Microbiology Past 72 Hours 06/01/20 13:00 Mucosa - Nose SARS-CoV-2 Antigen (Rapid) - Final Laboratory Results 06/01/20 10:10: WBC 6.6, RBC 4.77, Hgb 13.9, Hct 41.2, MCV 86.4, MCH 29.1, MCHC 33.7, RDW Std Deviation 39.1, RDW Coeff of Alannah 12.4, Plt Count 149 L, MPV 8.2, Immature Gran % (Auto) 0.300, Neut % (Auto) 67.1, Lymph % (Auto) 25.2, [place]pp % (Auto) 6.2, Eos % (Auto) 0.9, Baso % (Auto) 0.3, Absolute Neuts (auto) 4.4, Absolute Lymphs (auto) 1.66, Nucleated RBC % 0 06/01/20 10:10: Sodium 135 L, Potassium 3.9, Chloride 98, Carbon Dioxide 26.0, Anion Gap 11, BUN 14, Creatinine 0.85, Estim Creat Clear Calc 61.24, Est GFR (MDRD) Af Amer 111, Est GFR (MDRD) Non-Af 91, BUN/Creatinine Ratio 16.5, Glucose 191 H, Calcium 9.5, Troponin I < 0.015 06/01/20 10:10: B-Natriuretic Peptide 82.1 06/01/20 10:10: D-Dimer Quant (PE/DVT) 0.67 H* Diagnostic Data Chest X-Ray 06/01/20 10:09 IMPRESSION: Prominent interstitial markings could be chronic. Mild interstitial pulmonary edema cannot be excluded. Electronically Signed: Genaro Reyes MD at 10:44 EST Tel , Service support , Chest CTA 06/01/20 11:17 IMPRESSION: 1. No evidence of pulmonary embolism or aortic dissection. 2. Severe emphysematous changes. 3. Cystic/honeycomb pattern in the left lower lung likely due to pulmonary fibrosis with possible superimposed infiltrate. Electronically Signed: Genaro Reyes MD at 12:24 EST Tel , Service support , Assessment/Plan All Active Problems (Last Updated 01/02/20 @ 20:14 by Nereida Dempsey) History of coronary artery stent placement (Resolved 09/15/05) History of non-ST elevation myocardial infarction (NSTEMI) (Resolved 02/2009) 85 y/o admitted with a complaint of palpitations # Sinus tachycardia in a patient with history of Lawrence Parkinson White syndrome * HR in david 110s-120s * check TSH and cycle troponins * on metoprolol; will continue * if tachycardia persists, consult cardiology * 2D echo ordered #CAD s/p stents # Idiopathic pulmonary fibrosis * not on home oxygen * Stable. * #Benign essential hypertension: On metoprolol and valsartan #Type 2 diabetes mellitus: on metformin. ISS. Accuchecks ACHS # BPH; on flomax #Recently diagnosed prostate cancer * on bicalutamide. * to follow up with urologist and oncologist on outpatient basis * #DVT prophylaxis; lovenox Code status; DNRCCA * Patient counseled extensively about different types of CODE STATUS including full code, DNR CCA and DNR CCA. Patient elects to be DNRCCA. Total tcgh-tg-suww time 16 minutes. Inpatient E&M: 90116 Init Hosp L3 Procedures: 95455 Advncd Care Plan 30 Min
--- NOTE | 2020-06-01 15:35 | NURSING ---
Pt son in law Feng VARMA called and updated on admission.
[2020-06-01 18:46] LABS: Bedside Glucose 135 mg/dL (70-110)
[2020-06-01] MEDS: HYDROcodone Bitartrate/Apap 5/325 Tablet PO (20:39)
[2020-06-01] MEDS: Metoprolol Tartrate 25 MG Tablet PO (20:39)
[2020-06-01] MEDS: Pravastatin 20 MG Tablet 10 MG PO (20:40)
[2020-06-01] MEDS: ALPRAZolam 0.5 MG Tablet PO (20:45)
[2020-06-02] VITALS (9 sets, daily range): BP systolic 114–135; BP diastolic 54–79; PULSE 63–83; RESP 14–18; TEMP 36.5–37.2; O2SAT 94–98
[2020-06-02 06:23] LABS: Absolute Neutrophil Count 3.7 X10^3/uL (2.0-7.7); Basophil# 0.03 X10^3/uL; Basophil% 0.5 % (0-1); Eosinophil# 0.19 X10^3/uL; Hematocrit 40.8 % (40-54); Hemoglobin 13.7 g/dL (13.0-16.5); Lymphocyte % 28.5 % (19-41); Mean Corp Hgb Conc 33.6 g/dL (32-36); Mean Corpuscular Hgb 29.1 pg (27.0-32.0); Mean Corpuscular Volume 86.6 fL (80-94); Mean Platelet Vol. 8.6 fl (6.2-12.0); Monocyte% 9.5 % (0-10); NRBC Flagged by Analyzer 0 % (0-5); Neutrophil # 3.68 X10^3/uL (2.7-7.7); Neutrophil % 58.2 % (47-70); Platelet Count 160 K/mm3 (150-450); RBC Distribution Width CV 12.4 % (11.6-14.6); RBC Distribution Width SD 39.3 fl (35.1-43.9); Red Blood Count 4.71 M/mm3 (4.6-6.2); White Blood Count 6.3 K/mm3 (4.4-11.0)
[2020-06-02 06:55] LABS: Anion Gap 6 (5-15); BUN 12 mg/dL (7-18); BUN/Creat Ratio 16.9 RATIO (10-20); Calcium,Total 9.4 mg/dL (8.5-10.1); Chloride 104 mmol/L (98-107); Creatinine, Serum 0.71 mg/dL (0.70-1.30); EST Glomerular Filtration Rate 112 mL/min (>60); Est Glom Filt Rate - Afr Amer 135 mL/min (>60); Estimated Creatinine Clearance 50.03 ml/min; Glucose 119 mg/dL (74-106); Sodium Level 137 mmol/L (136-145)
[2020-06-02] MEDS: Multivitamins,Ther W-Minerals Tablet 1 TABLET PO (08:04)
[2020-06-02] MEDS: Tamsulosin HCl 0.4 MG Capsule 0.8 MG PO (08:04)
[2020-06-02] MEDS: metFORMIN (XR) 500 MG Tablet 1000 MG PO ×2 (08:04→17:29)
[2020-06-02] MEDS: Losartan Potassium 50 MG Tablet PO (09:31)
[2020-06-02] MEDS: Loratadine 10 MG Tablet PO (09:31)
[2020-06-02] MEDS: Montelukast 10 MG Tablet PO (09:31)
[2020-06-02] MEDS: Metoprolol Tartrate 25 MG Tablet PO (09:31)
[2020-06-02] MEDS: Enoxaparin 40 MG/0.4 ML Syringe SC (09:31)
[2020-06-02] MEDS: Senna/Docusate Sodium 1 Tablet 2 TABLET PO (09:34)
--- NOTE | 2020-06-02 09:42 | ECHOCS_ITS ---
Reason For Study: Abnormal EKG Procedure This was a 2D Doppler, Color Flow transthoracic echocardiogram. The study was technically difficult. Contrast injection was performed. Exam performed portable in patient room. Left Ventricle Normal LV size. Left ventricular systolic function is normal. The estimated ejection fraction is 60 %. Stage 1 diastolic dysfunction. No regional wall motion abnormalities noted. Right Ventricle Normal RV size. Normal systolic function. Aortic Valve Trisinus/trileaflet aortic valve. Mild (1+) aortic valve insufficiency. Pulmonic Valve Normal pulmonic valve. Great Vessels Calcified aortic root. The pulmonary artery is normal size. Normal inferior vena cava. Pericardium/Pleural No pericardial effusion. Medication Diluted definity 3ml given slow IV push to enhance endocardial definition. Performed a rapid injection of agitated mix of 9 cc saline and 1cc air to assess for atrial septal defect. MMode/2D Measurements & Calculations LVIDd: 3.9 cm IVSd: 1.0 cm Ao root diam: 4.0 cm LVIDs: 2.8 cm LVPWd: 0.91 cm LA dimension: 4.2 cm FS: 27.4 % LAV(MOD-bp): 57.3 ml LA A4 area: 18.8 cm2 RA A4 area: 16.0 cm2 LAV(MOD-bp) Indexed: 31.3 ml/m2 LAV(MOD-sp2): 52.0 ml LAV(MOD-sp4): 53.3 ml Time Measurements MV dec time: 0.30 sec Doppler Measurements & Calculations MV E max toñito: 70.3 cm/sec Lat Peak E' Toñito: 9.0 cm/sec Med Peak E' Toñito: 6.1 cm/sec MV A max toñito: 106.8 cm/sec E/E' lat: 7.8 E/E' med: 11.5 MV E/A: 0.66 MV V2 max: 121.3 cm/sec MV P1/2t max toñito: 84.7 cm/sec Ao V2 max: 105.5 cm/sec MV max P.9 mmHg MV P1/2t: 93.7 msec Ao max P.4 mmHg MV V2 mean: 57.0 cm/sec MV mean P.6 mmHg MV dec slope: 265.0 cm/sec2 MV V2 VTI: 36.8 cm MVA(P1/2t): 2.3 cm2 AI max toñito: 302.0 cm/sec LV V1 max: 103.9 cm/sec PA V2 max: 89.6 cm/sec AI max P.5 mmHg LV V1 max P.3 mmHg AI dec slope: 151.5 cm/sec2 AI P1/2t: 583.9 msec Interpretation Summary Normal LV size. Left ventricular systolic function is normal. The estimated ejection fraction is 60 %. Stage 1 diastolic dysfunction. Contrast injection was performed. Ordering Physician: Severiano Soares Referring Physician: Maday Vazquez M.D. Performed By: Dewey Heath RCS
--- NOTE | 2020-06-02 12:40 | CASEMGMT ---
Addendum entered by Aleyda Coley 06/03/20 22:31: 06/02/20: Kavya @ [facility]HC aware pt is discharging home today (06/02) Original Note: RN CM ELL TUTOR CM to room to meet with patient for initial transition planning/care coordination assessment. RN LEANDRO introduced self and role at [facility]. Pt voices understanding and consents to assessment at this time. Pt sitting up in chair in room in no distress at this time. Pt is A/O at this time and answers all questions appropriately. Care providers, pharmacy, and demographics verified/updated at this time. PCP: Dr Vazquez Specialists: Dr Duarte--urology @ [facility], Dr Dillard--pain mgmt, Dr Galvin- cardiology Preferred Pharmacy: [facility] retail Insurance: Wilber STUART Prescription Benefit: Yes Living Will/HPOA: Has both LW and Healthcare POA, who is his son, Lamberto, and daughter, Stefanie Israel LNOK: Son, Lamberto, and daughter, Stefanie Living Arrangements: Lives alone in one-story home w/basement w/ramp entry through garage. Independent w/ADL's and IADL's. Manages his own medications and appts. Hires help for deep cleaning. Family lives nearby and supportive. Transportation: Family DME: States has the following DME: glucometer, raised toilet seat, quad cane, rails/grab bars, walker, medical alert. Pt states no need for further DME at this time. HHC: Active w/[facility] HHC: PT/OT. Pt wishes to return home w/HHC and states has no concerns with going home at time of discharge. CM to follow for any further discharge planning/needs. Pt voices no concerns/needs at this time. Advised pt to ask for CM if any further questions/concerns/needs arise. Voices understanding. PLAN: Home w/resumption of HHC: PT/OT. Mindy MCBRIDE RN, CM
--- NOTE | 2020-06-02 15:59 | DCINST_ITS ---
You will use the following diet at home:: Cardiac Your food should be the consistency of: Regular Your liquids should be the consistency of: Regular/Thin Discharge Activity: Return to Normal Activity Call your doctor if you observe: Fever of 101 or Higher, Shortness of breath, Dizziness, Fainting spells, Swelling in the ankles, Chest pain, Increased palpitations (irregular heartbeat) Allergies/Adverse Reactions: Allergies quinidine Allergy (Severe, Verified 06/01/20 10:11) drug induced lupus-like symptoms animal dander Allergy (Intermediate, Verified 06/01/20 10:11) Unknown house dust Allergy (Intermediate, Verified 06/01/20 10:11) Unknown mold Allergy (Intermediate, Verified 06/01/20 10:11) Unknown Medications to take at Discharge Metoprolol Tartrate [Lopressor (beta yuly)] 25 mg PO BID 04/13/13 Montelukast [Singulair] 10 mg PO DAILY 04/13/13 Multivit-Min/FA/Lycopene/Lut [Centrum Silver Tablet] 1 ea PO DAILY 04/13/13 Nitroglycerin (INPATIENT USE) [Nitrostat] 0.4 mg SUBLINGUAL Q5M PRN 04/13/13 artificial tears(bojeasi-bhqjebpn-zxistym) 0.1 %-0.3 %-0.2 % eye drops 1 drp OPHTHALMIC 4-8XD PRN 11/16/18 fexofenadine 180 mg tablet 180 mg PO DAILY 11/16/18 metformin 500 mg tablet,extended release 24 hr 1,000 mg PO BID tab 11/16/18 pravastatin 10 mg tablet 10 mg PO DAILY 11/16/18 tamsulosin 0.4 mg capsule 0.8 mg PO DAILY cap 11/16/18 valsartan 160 mg tablet 160 mg PO DAILY 11/16/18 Bicalutamide [Casodex] 50 mg PO DAILY 05/11/20 Hydrocodone/Acetaminophen [[place] 5-325 Tablet] 2 ea PO TID PRN PRN 2 Days #10 tab 05/12/20 Sennosides/Docusate Sodium [Senna-S Tablet] 2 ea PO BID PRN PRN #30 tab 05/12/20 Alprazolam 1 - 2 tab PO DAILY PRN 06/01/20 Oxybutynin [Ditropan] 5 mg PO TID PRN 06/01/20 Primary Care Physician: Maday Vazquez MD [Primary Care Provider] - Please follow up with your Primary Care Physician in: 3-5 days Test Results: Test results from this visit will be discussed in further detail at your follow- up appointment, if applicable.
--- NOTE | 2020-06-02 17:38 | NURSING ---
called son in law sudha reviewed dc instructions with dimitry and son in law
--- NOTE | 2020-06-02 18:51 | DS.PCM_ITS ---
Discharge Date and Diagnosis Date of Admission: 06/01/20 Date of Discharge: 06/02/20 - Secondary Discharge Diagnosis Chronic Problems: Chronic Problems (Last Updated 01/02/20 @ 20:14 by Nereida Dempsey) Atherosclerosis of coronary artery without angina pectoris (Chronic) Xtrmu-Qocvzabsq-Odlqx syndrome (Chronic) Essential (primary) hypertension (Chronic) Hyperlipidemia (Chronic) Idiopathic pulmonary fibrosis (Chronic) Hospital Course and Treatment Imaging Results: Clinical Impression(s) from Imaging Studies Chest X-Ray 06/01/20 10:09 IMPRESSION: Prominent interstitial markings could be chronic. Mild interstitial pulmonary edema cannot be excluded. Electronically Signed: Genaro Reyes MD at 10:44 EST Tel , Service support , Chest CTA 06/01/20 11:17 IMPRESSION: 1. No evidence of pulmonary embolism or aortic dissection. 2. Severe emphysematous changes. 3. Cystic/honeycomb pattern in the left lower lung likely due to pulmonary fibrosis with possible superimposed infiltrate. Electronically Signed: Genaro Reyes MD at 12:24 EST Tel , Service support , Echo: Interpretation Summary Normal LV size. Left ventricular systolic function is normal. The estimated ejection fraction is 60 %. Stage 1 diastolic dysfunction. Contrast injection was performed. Operations: None Procedures: None Summary of Care Provided: Per HPI: The patient is a 85 year old M with a past medical history as outlined which includes a history of Dimnt-Cnjalqyit-Pwret syndrome which he thinks he had ablation for at [facility] some years ago, CAD s/p stent and recently diagnosed prostate cancer. He was admitted to the ED on 05/2020 with a complaint of shortness of breath and palpitations. Symptoms started in the early hours of the day of admission and persisted. This started when he was having breakfast. Symptoms did not resolve so he called the EMS. On admission, he was found to have sinus tachycardia with heart rate of about 120. He denied any fever or chills, any dizziness or chest pain, any nausea vomiting or diarrhea. Review of symptoms otherwise negative. He does not member the last time he had such symptoms of tachycardia. Admission, vitals show temperature of 98.2 Fahrenheit with pulse rate of 110, respiratory rate of 19 and blood pressure of 137/77. Chemistry essentially unremarkable with BNP of 82.1 and troponin of less than 0.015. EKG showed sinus tachycardia. He is being admitted to be managed for sinus tachycardia. Hospital Course 1. Sinus tachycardia with a history of Vwdpa-Bzuvgevqp-Tozpd syndrome status post ablation/CAD status post stents/HTN/RXH-03-egqx-old male with a history of Hwxms-Tviofhdlg-Efpwf syndrome that was ablated in [facility] years ago presents with sinus tachycardia from home. His heart rate on admission was into the 110s to 120s. He states that he felt the palpitations prior to having taken his metoprolol for the day and instead of taking the metoprolol he came to the ER. Since he has been in the hospital his heart rate has been under control. An echo was obtained which was unremarkable and he is feeling much better without any chest pain or episodes of tachycardia while here. I discussed with him the plan for discharge and he expressed understanding of the risk benefits of going home and would like to go home today. Would recommend continuing his home dosage of metoprolol 25 mg p.o. twice daily 2. Idiopathic pulmonary fibrosis, type 2 diabetes, BPH, recently diagnosed prostate cancer are all chronic medical conditions which complicate his care. His home medications were continued where appropriate - Physical Exam Vitals/I&O's: Vital Signs Temp Pulse Resp BP Pulse Ox 98.4 F 83 14 126/59 H 97 06/02/20 15:29 06/02/20 15:29 06/02/20 15:29 06/02/20 15:29 06/02/20 15:29 Oxygen Flow Rate (L/min) 2 Oxygen Delivery Method Room Air Weight: 147 lb 0.773 oz Body Mass Index (BMI) 21.1 Finger Stick Blood Glucose 235 Intake and Output for Last 24 Hours 05/31/20 06/01/20 06/02/20 23:59 23:59 23:59 Intake Total 1070 / 1070 860 / 860 Balance 1070 / 1070 860 / 860 General: Alert, Oriented x3, Cooperative, No apparent distress HEENT: Atraumatic, PERRLA, EOMI, Normocephalic Oral: Moist Mucosa Neck: Supple, No JVD Lungs: Clear to auscultation, Normal air movement, No rhonchi, No wheeze, No rales, Diminished Cardiovascular: Regular rate, Regular Rhythm, Normal S1, Normal S2, No murmurs Abdomen: Soft, Non Tender, Non-Distended, No Hepato-splenomegaly Extremities: No edema, Capillary Refill Less than 3 Seconds Skin: No rashes, No breakdown Neurological: Neuro grossly intact, Sensory exam intact to light touch and pain Psych/Mental Status: Normal Affect, Appropriate Microbiology Past 72 Hours 06/01/20 13:00 Mucosa - Nose SARS-CoV-2 Antigen (Rapid) - Final Laboratory Results 06/01/20 18:30: Troponin I 0.024 06/01/20 20:50: Troponin I 0.024 06/01/20 23:55: Troponin I 0.036 06/02/20 06:10: WBC 6.3, RBC 4.71, Hgb 13.7, Hct 40.8, MCV 86.6, MCH 29.1, MCHC 33.6, RDW Std Deviation 39.3, RDW Coeff of [place]annah 12.4, Plt Count 160, MPV 8.6, Immature Gran % (Auto) 0.300, Neut % (Auto) 58.2, Lymph % (Auto) 28.5, [place] % (Auto) 9.5, Eos % (Auto) 3.0, Baso % (Auto) 0.5, Absolute Neuts (auto) 3.7, Absolute Lymphs (auto) 1.80, Nucleated RBC % 0 06/02/20 06:10: Sodium 137, Potassium 4.0, Chloride 104, Carbon Dioxide 27.0, Anion Gap 6, BUN 12, Creatinine 0.71, Estim Creat Clear Calc 50.03, Est GFR (MDRD) Af Amer 135, Est GFR (MDRD) Non-Af 112, BUN/Creatinine Ratio 16.9, Glucose 119 H, Calcium 9.4 06/02/20 06:10: Magnesium 2.0 Discharge Activity: Return to Normal Activity Call your doctor if you observe: Fever of 101 or Higher, Shortness of breath, Dizziness, Fainting spells, Swelling in the ankles, Chest pain, Increased palpitations (irregular heartbeat) Home Medications: Medications to take at Discharge Metoprolol Tartrate [Lopressor (beta yuly)] 25 mg PO BID 04/13/13 Montelukast [Singulair] 10 mg PO DAILY 04/13/13 Multivit-Min/FA/Lycopene/Lut [Centrum Silver Tablet] 1 ea PO DAILY 04/13/13 Nitroglycerin (INPATIENT USE) [Nitrostat] 0.4 mg SUBLINGUAL Q5M PRN 04/13/13 artificial tears(pncwptf-krvzssoi-cfrkzpf) 0.1 %-0.3 %-0.2 % eye drops 1 drp OPHTHALMIC 4-8XD PRN 11/16/18 fexofenadine 180 mg tablet 180 mg PO DAILY 11/16/18 metformin 500 mg tablet,extended release 24 hr 1,000 mg PO BID tab 11/16/18 pravastatin 10 mg tablet 10 mg PO DAILY 11/16/18 tamsulosin 0.4 mg capsule 0.8 mg PO DAILY cap 11/16/18 valsartan 160 mg tablet 160 mg PO DAILY 11/16/18 Bicalutamide [Casodex] 50 mg PO DAILY 05/11/20 Hydrocodone/Acetaminophen [[place] 5-325 Tablet] 2 ea PO TID PRN PRN 2 Days #10 tab 05/12/20 Sennosides/Docusate Sodium [Senna-S Tablet] 2 ea PO BID PRN PRN #30 tab 05/12/20 Alprazolam 1 - 2 tab PO DAILY PRN 06/01/20 Oxybutynin [Ditropan] 5 mg PO TID PRN 06/01/20 Primary Care Physician: Maday Vazquez MD [Primary Care Provider] - Please follow up with your Primary Care Physician in: 3-5 days Disposition: Home Minutes spent on discharge:: 35 Patient Condition:: Stable Medical Necessity - Tobacco Use Smoking Status: Never smoker Meaningful Use Info Meaningful Use Diagnoses (Choose all that apply): None applicable OBSV E&M: 35571 Observation care discharge
== END 2020-06-02 15:59 | disposition home health service (06) ==
LOC: ED 12:04 → PCU 16:01
PROVIDERS: Admitting Provider Student in an Organized Health Care Education/Training Program; Emergency Provider Emergency Medicine; PCP Internal Medicine; Visit Provider Family Medicine
DX: I25.10 Atherosclerotic heart disease of native coronary artery without angina pectoris (principal); I45.6 Pre-excitation syndrome; I10 Essential (primary) hypertension; E78.5 Hyperlipidemia, unspecified; J84.112 Idiopathic pulmonary fibrosis; Z79.899 Other long term (current) drug therapy; Z79.84 Long term (current) use of oral hypoglycemic drugs; Z95.5 Presence of coronary angioplasty implant and graft; R00.0 Tachycardia, unspecified; N40.0 Benign prostatic hyperplasia without lower urinary tract symptoms; I25.2 Old myocardial infarction; E11.9 Type 2 diabetes mellitus without complications; C61 Malignant neoplasm of prostate; R06.02 Shortness of breath
CPT/HCPCS: 36415; 71045; 71275; 80048; 82962; 83735; 83880; 84484; 85025; 85379; 87426; 93005; 93306; 96365; 96366; 96372; 96375; 97162; 97166; 97802; 99218; 99285; J7030; Q9957; Q9967; A4216; C8929; G0378; J2405

== ENCOUNTER → 2020-06-16 14:32 | Outpatient (CLI) | payer MEDICARE, BC, SELFPAY ==
[2020-06-01 17:04] VITALS: BMI 21.1
[2020-06-16 17:21] LABS: Amphetamine Urine VISTA NEGATIVE (<1000 ng/mL); Barbiturate Urine VISTA NEGATIVE (< 200 ng/mL); Benzodiazepine Urine VISTA NEGATIVE (< 200 ng/mL); Cocaine Urine VISTA NEGATIVE (< 300 ng/mL); Ecstacy Urine VISTA NEGATIVE (< 500 ng/mL); Methadone Urine VISTA NEGATIVE (< 300 ng/mL); PCP Urine VISTA NEGATIVE (< 25 ng/mL); THC Urine VISTA NEGATIVE (< 50 ng/mL); Vista UDS pH Range 6
== END ==
PROVIDERS: PCP Internal Medicine; Visit Provider Anesthesiology Pain Medicine
DX: F11.20 Opioid dependence, uncomplicated (principal)
CPT/HCPCS: 80307

== ENCOUNTER 2020-07-18 15:36 | Outpatient (RCR) | payer MEDICARE, BC, SELFPAY ==
[2020-06-01 17:04] VITALS: BMI 21.1
== END 2020-07-18 23:59 ==
LOC: IMMUN 15:36
PROVIDERS: PCP Internal Medicine; Visit Provider Family Medicine
DX: Z23 Encounter for immunization (principal)
CPT/HCPCS: 0011A; 0012A; 91301

== ENCOUNTER → 2020-11-28 15:58 | Outpatient (CLI) | payer MEDICARE, BC, SELFPAY ==
[2020-06-01 17:04] VITALS: BMI 21.1
[2020-11-28 17:49] LABS: Amphetamine Urine VISTA NEGATIVE (<1000 ng/mL); Barbiturate Urine VISTA NEGATIVE (< 200 ng/mL); Benzodiazepine Urine VISTA NEGATIVE (< 200 ng/mL); Cocaine Urine VISTA NEGATIVE (< 300 ng/mL); Ecstacy Urine VISTA NEGATIVE (< 500 ng/mL); Methadone Urine VISTA NEGATIVE (< 300 ng/mL); PCP Urine VISTA NEGATIVE (< 25 ng/mL); THC Urine VISTA NEGATIVE (< 50 ng/mL); Vista UDS pH Range 6
== END ==
PROVIDERS: PCP Internal Medicine; Referring Provider Anesthesiology Pain Medicine; Visit Provider Anesthesiology Pain Medicine
DX: F11.20 Opioid dependence, uncomplicated (principal)
CPT/HCPCS: 80307